=== PATIENT | female | born 1955 | race African-American/Black ===

== ENCOUNTER 2018-08-20 22:54 | Inpatient (IN) | payer MEDICARE, MEDICAID ==
[~2018-08-20] VITALS: Ht 162.6 cm; Wt 110.7 kg
[2018-08-20] MEDS ORDERED: LISI40TA4 PO (23:16)
[2018-08-20] MEDS ORDERED: ATEN50TA PO (23:16)
[2018-08-20] MEDS ORDERED: NIFE20CA8 PO (23:16)
[2018-08-20] MEDS ORDERED: METF500T PO (23:16)
[2018-08-20] MEDS ORDERED: ASPI81TA31 PO (23:16)
[2018-08-20] MEDS ORDERED: ATOR40TA PO (23:16)
[2018-08-20] MEDS ORDERED: ONDANSETRON IV *ER 4 MG/2 ML VIAL IV ONE (23:30)
[2018-08-20] MEDS ORDERED: MORPHINE SULFATE 4 MG/1 ML DISP.SYRIN IV ONE (23:30)
[2018-08-20 23:36] LABS: BASOPHILS # (AUTO) 0.2 K/uL (0.0-8.0); BASOPHILS % (AUTO) 1.9 % (0.0-2.0); EOSINOPHILS # (AUTO) 0.1 K/uL (0.0-0.7); HEMATOCRIT 35.8 % (31.2-41.9); HEMOGLOBIN 11.9 g/dL (10.9-14.3); LYMPHOCYTES % (AUTO) 24.1 % (20.5-51.5); MEAN CORPUSCULAR HEMOGLOBIN 28.6 uug (24.7-32.8); MEAN CORPUSCULAR HGB CONC 33 g/dL (32.3-35.6); MEAN CORPUSCULAR VOLUME 85.9 fL (75.5-95.3); MONOCYTES # (AUTO) 0.5 K/uL (2.0-10.0); MONOCYTES % (AUTO) 5.9 % (0.0-11.0); NEUTROPHILS # (AUTO) 5.6 K/uL (1.8-8.9); NEUTROPHILS % (AUTO) 67.1 % (38.5-71.5); PLATELET COUNT (AUTO) 412 K/uL (179-408); RED BLOOD CELL COUNT(AUTO) 4.17 MIL/uL (3.63-4.92); WHITE BLOOD COUNT (AUTO) 8.3 K/uL (3.8-11.8)
[2018-08-20] MEDS ORDERED: MORPHINE SULFATE 4 MG/1 ML DISP.SYRIN ONE (23:37)
[2018-08-20] MEDS ORDERED: ONDANSETRON 4 MG/2 ML VIAL ONE (23:37)
--- NOTE | 2018-08-20 23:39 | NUR ---
Patient out of unit for ct scan via gurn[facility]
[2018-08-20 23:47] LABS: CREATININE 0.8 mg/dL (0.6-1.3); POTASSIUM 3.7 mmol/L (3.5-5.1)
--- NOTE | 2018-08-20 23:48 | NUR ---
Patient back from ct scan with no distress noted
[2018-08-20 23:53] LABS: BILIRUBIN,DIRECT 0.1 mg/dL (0.0-0.2); BILIRUBIN,TOTAL 0.4 mg/dL (0.2-1.0); TOTAL PROTEIN, SERUM 8.4 g/dL (6.4-8.2)
[2018-08-21 00:02] LABS: *BILIRUBIN,URIN NEGATIVE (NEGATIVE); *CLARITY,URINE CLEAR (CLEAR); *COLOR,URINE YELLOW (YELLOW); *KETONES,URINE NEGATIVE (NEGATIVE); *UROBILINOGEN,URINE 0.2 E.U./dl (NORMAL); LEUKOCYTE ESTERASE ,URINE NEGATIVE (NEGATIVE); NITRITE, URINE NEGATIVE (NEGATIVE); UGLUCOSE NEGATIVE (NEGATIVE)
[2018-08-21 00:03] LABS: *BLOOD, URINE TRACE (NEGATIVE)
[2018-08-21 00:13] LABS: RBC,URINE 0-3 /HPF (0-3)
[2018-08-21 00:14] LABS: BACTERIA,URINE MODERATE /HPF (NONE SEEN); SQUAMOUS EPITHELIAL CELL,UR FEW /HPF (NONE SEEN); WBC,URINE 0-3 /HPF (0-3)
[2018-08-21] MEDS ORDERED: HYDROMORPHONE 1 MG/1 ML DISP.SYRIN IV ONE ×2 (00:15→02:15)
--- NOTE | 2018-08-21 00:45 | NUR ---
Patient sleeping with no distress noted
--- NOTE | 2018-08-21 01:35 | NUR ---
Waiting for ct result
--- NOTE | 2018-08-21 01:56 | NUR ---
Dr Brar speaking with Dr Cruz for consult for surgery
--- NOTE | 2018-08-21 01:58 | NUR ---
Paged [facility] panel. Waith for Allen MACHINE REPAIRER to call back
[2018-08-21] MEDS ORDERED: PIPERACILLIN SODIUM/TAZOBACTAM 3.375 G in IV DEXTROSE 5% 50 ML IV ONE (02:00)
[2018-08-21] MEDS ORDERED: ONDANSETRON 4 MG/2 ML VIAL ONE ×2 (02:08→11:49)
--- NOTE | 2018-08-21 02:18 | NUR ---
Dr Brar spoke with Allen VICE PRESIDENT SAFETY sleeve ironer for eppic
[2018-08-21] MEDS ORDERED: ACETAMINOPHEN 650 MG SUPP.RECT RC PRN (02:30)
[2018-08-21] MEDS ORDERED: Z GUARD REMEDY PASTE 57 GM TUBE TOP PRN (02:30)
[2018-08-21] MEDS ORDERED: MORPHINE SULFATE 2 MG/1 ML DISP.SYRIN IV PRN (02:30)
[2018-08-21] MEDS ORDERED: DEXTROSE 50% 50 ML DISP.SYRIN IV PRN (02:30)
[2018-08-21] MEDS ORDERED: ONDANSETRON IV *ER 4 MG/2 ML VIAL IV ONE (02:30)
--- NOTE | 2018-08-21 03:30 | NUR ---
Received patient from ER. Dx: Acute appendicitis. Patient is A/Ox4, able to make needs known. Son is at bedside. No signs of acute distress. Complains of pain 8/10 on the right side of abdomen and some nausea. No complaints of SOB, patient is on 2L NC. Heplock on the left AC is intact and patent. Belongings list and belongings brought with patient. Safety measures initiated. Bed is low and locked, call light within reach. Will continue with admission process.
[2018-08-21] MEDS ORDERED: METRONIDAZOLE 500 MG/NS 100ML 100 ML IV ONE (03:31)
[2018-08-21] MEDS ORDERED: CEFTRIAXONE 1 G VIAL ONE (03:32)
[2018-08-21 04:00] VITALS: BP 129/63
[2018-08-21] MEDS: ONDANSETRON 4 MG/2 ML VIAL IV PRN ×2 (04:07→15:33)
[2018-08-21] MEDS: CEFTRIAXONE 2 G in IV DEXTROSE 5% 100 ML IV SCH (04:19)
[2018-08-21] MEDS: IV D5LR 1,000 ML IV PRN (05:19)
[2018-08-21] MEDS: METRONIDAZOLE 500 MG/NS 100ML 500 MG in PREMIXED 1 EACH IV SCH ×3 (06:24→22:19)
[2018-08-21] MEDS: BLOOD SUGAR DIAGNOSTIC 1 EACH STRIP VI SCH ×4 (06:34→21:41)
--- NOTE | 2018-08-21 07:47 | NUR ---
NOTIFIED JOSEFA ESPANA OF SCHEDULED SURGERY
[2018-08-21] MEDS: HYDROMORPHONE 1 MG/1 ML DISP.SYRIN IV PRN ×3 (08:04→20:01)
[2018-08-21] MEDS ORDERED: BUPIVACAINE 0.25% 30 ML VIAL ONE (08:07)
[2018-08-21] MEDS ORDERED: IRR NORMAL SALINE IRRIGATION 2000 ML BOTTLE IR ONE (08:21)
[2018-08-21] MEDS ORDERED: IV NORMAL SALINE 1000 ML BAG IV ONE (08:21)
[2018-08-21] MEDS ORDERED: SUCCINYLCHOLINE CHLORIDE 200 MG/10 ML VIAL MC ONE (08:21)
[2018-08-21] MEDS ORDERED: LIDOCAINE-MPF 2% 5 ML VIAL MC ONE (08:21)
[2018-08-21] MEDS ORDERED: ONDANSETRON 4 MG/2 ML VIAL IV ONE (08:21)
[2018-08-21] MEDS ORDERED: PROPOFOL 200 MG/20 ML BOTTLE IV ONE (08:21)
[2018-08-21] MEDS ORDERED: SEVOFLURANE 250 ML BOTTLE IH ONE (08:21)
[2018-08-21] MEDS ORDERED: DEXAMETHASONE SOD PHOSPHATE 4 MG INJ IV ONE (08:21)
[2018-08-21] MEDS ORDERED: PANTOPRAZOLE SODIUM 40 MG VIAL IV SCH ×2 (09:00)
--- NOTE | 2018-08-21 09:01 | NUR ---
PT PICKED UP FOR SURGERY AT 0901. PT OFF UNIT.
[2018-08-21] MEDS ORDERED: FENTANYL CITRATE 100 MCG/2 ML AMPUL ONE (10:42)
[2018-08-21 11:00] VITALS: BP 134/64
--- NOTE | 2018-08-21 12:44 | NUR ---
Patient back from surgery, A/A/Ox4 started on ice chips, will advance diet as tolerated. VSS, IV in left foot intact and infusing. Family at bedside, call light in reach.
[2018-08-21] MEDS: ESOMEPRAZOLE SODIUM 40 MG VIAL IV SCH (15:38)
[2018-08-21 16:00] VITALS: BP_SYST 103; BP_SYST 126; BP_DIAS 54; BP_DIAS 70
[2018-08-21] MEDS: INSULIN REGULAR, HUMAN 300 UNIT/3 ML VIAL SQ PRN ×2 (16:42→21:43)
--- NOTE | 2018-08-21 18:10 | NUR ---
PATIENT TOLERATING DIET, PAIN MANAGED WITH DILAUDID PRN. PATIENT OOB AMBULATES TO RESTROOM, BOWEL SOUNDS AUDIBLE, NOT PASSING GAS AT THIS TIME. IV IN LEFT FOOT REMAINS INTACT AND PATENT WITH FLUIDS RUNNING ORDERED. NO FALLS OR INJURY DURING SHIFT, FAMILY REMAINS AT BEDSIDE, CALL LIGHT IN REACH.
--- NOTE | 2018-08-21 19:45 | NUR ---
Received report from the day shift. Received patient awake, alert and oriented x 4, IV access is patent and intact, flushes well. Bed is in low position, locked, side rails up x 2, call light within reach. Comfort and safety provided . No acute distress noted. patient reports pain, denies nausea. Surgical dressing is dry and intact.
[2018-08-21 20:00] VITALS: BP 140/72
[2018-08-22] MEDS: HYDROMORPHONE 1 MG/1 ML DISP.SYRIN IV PRN ×3 (00:23→08:45)
[2018-08-22] MEDS: IV D5LR 1,000 ML IV PRN (02:37)
[2018-08-22] MEDS: CEFTRIAXONE 2 G in IV DEXTROSE 5% 100 ML IV SCH (02:43)
[2018-08-22] MEDS: ONDANSETRON 4 MG/2 ML VIAL IV PRN ×2 (05:12→11:31)
[2018-08-22 05:23] VITALS: BP 124/55
[2018-08-22] MEDS: METRONIDAZOLE 500 MG/NS 100ML 500 MG in PREMIXED 1 EACH IV SCH ×3 (06:07→22:41)
[2018-08-22 06:32] LABS: BASOPHILS % (AUTO) 0.2 % (0.0-2.0); EOSINOPHILS # (AUTO) 0.1 K/uL (0.0-0.7); EOSINOPHILS % (AUTO) 0.7 % (0.0-7.0); HEMATOCRIT 30.2 % (31.2-41.9); LYMPHOCYTES # (AUTO) 2.1 K/uL (20.0-40.0); LYMPHOCYTES % (AUTO) 21.7 % (20.5-51.5); MEAN CORPUSCULAR HEMOGLOBIN 29.1 uug (24.7-32.8); MEAN CORPUSCULAR HGB CONC 33 g/dL (32.3-35.6); MEAN CORPUSCULAR VOLUME 87.3 fL (75.5-95.3); MONOCYTES # (AUTO) 0.6 K/uL (2.0-10.0); MONOCYTES % (AUTO) 6.7 % (0.0-11.0); NEUTROPHILS # (AUTO) 6.7 K/uL (1.8-8.9); NEUTROPHILS % (AUTO) 70.7 % (38.5-71.5); PLATELET COUNT (AUTO) 361 K/uL (179-408); RED BLOOD CELL COUNT(AUTO) 3.45 MIL/uL (3.63-4.92); WHITE BLOOD COUNT (AUTO) 9.5 K/uL (3.8-11.8)
[2018-08-22 06:46] LABS: MAGNESIUM 1.5 mg/dL (1.8-2.4); PHOSPHOROUS 3.8 mg/dL (2.5-4.9); POTASSIUM 3.4 mmol/L (3.5-5.1)
[2018-08-22] MEDS: BLOOD SUGAR DIAGNOSTIC 1 EACH STRIP VI SCH ×4 (06:59→21:41)
--- NOTE | 2018-08-22 07:25 | NUR ---
Received report from quarry supervisor open pit nurse Baldemar,Patient is awake, alert and oriented x 4, unable to ambulate d/t pain. Bed is in low position, locked, side rails up x 2, call light within reach. Comfort and safety provided . No acute distress noted. Will continue according to plan of care
--- NOTE | 2018-08-22 07:50 | NUR ---
Report given to the day shift nurse Юлия PAREDES. Patient is awake, alert and oriented x 4, unable to ambulate d/t pain. Patient has had multiple episodes of severe pain in the abdomen managed with dilaudid. In the morning patient tried drinking apple juice and developed nausea. Zofran given with poor relief. Bed is in low position, locked, side rails up x 2, call light within reach. Comfort and safety provided . No acute distress noted. Report given to the day nurse.
[2018-08-22] MEDS: ESOMEPRAZOLE SODIUM 40 MG VIAL IV SCH (08:31)
[2018-08-22] MEDS ORDERED: NIFEDIPINE 40 MG PO SCH (09:00)
[2018-08-22] MEDS ORDERED: Medication Not On Formulary EA (Lisinopril 40 MG) PO SCH (09:00)
[2018-08-22] MEDS ORDERED: POTASSIUM CHLORIDE 20 MEQ TAB.PRT.SR PO ONE (09:15)
[2018-08-22] MEDS: ATENOLOL 50 MG TABLET PO SCH ×2 (09:42→18:08)
[2018-08-22] MEDS: MAGNESIUM SULFATE/D5W 100 ML IV SCH ×3 (09:43→11:45)
[2018-08-22] MEDS: METFORMIN HCL 500 MG TABLET PO SCH (09:43)
[2018-08-22 11:24] VITALS: BP 117/56
[2018-08-22] MEDS ORDERED: FLUT10.62 IH (14:41)
[2018-08-22 15:57] VITALS: BP 119/64
[2018-08-22] MEDS ORDERED: ACETAMINOPHEN ES 500 MG TABLET- SA PATIENTS-PAIN ONLY PO PRN (18:30)
--- NOTE | 2018-08-22 18:41 | NUR ---
PRESCRIBED MEDICATIONS ARE GIVEN, PATIENT HAD MULTIPLE EPISODES OF PAIN MANAGED WITH DILAUDID IV AND TYLENOL PO, NAUSEA WAS MANAGED WITH ZOFRAN IV,PATIENT TOLERATED WELL,COOPERATIVE WITH PLAN OF CARE,SAFETY AND COMFORT MEASURES WERE IMPLEMENTED WILL ENDORSE TO UPCOMING NURSE FO CONTINUITY OF CARE
[2018-08-22] MEDS: ACETAMINOPHEN 325 MG TABLET PO PRN (18:47)
--- NOTE | 2018-08-22 19:51 | NUR ---
RECEIVED PATIENT IN GOOD MOOD, PAIN IS MILD BELOW 4/10. COMFORT AND SAFETY MEASURES ARE IN PLACE.
[2018-08-22 20:22] VITALS: BP 149/59
[2018-08-22] MEDS: NIFEdipine 10 MG CAPSULE PO SCH (20:22)
[2018-08-22] MEDS ORDERED: ATORVASTATIN 40 MG TABLET PO SCH (21:00)
--- NOTE | 2018-08-22 21:25 | NUR ---
Patients ambulated with her son. Walking in the hallway for 3 min. returned to bed safely, tolerated well.
--- NOTE | 2018-08-22 21:41 | NUR ---
patient blood glucose is 142. Refused insulin. Refused D5LR infusion. Comfort and safety provided. Pain is mild and less frequent.
[2018-08-22] MEDS: INSULIN REGULAR, HUMAN 300 UNIT/3 ML VIAL SQ PRN (21:42)
--- NOTE | 2018-08-22 22:50 | NUR ---
patient reported the IV in her foot is painful. infusion was paused and new IV inserted in the right distal forearm. Flushed and restarted infusion. COmfort and safety provided.
--- NOTE | 2018-08-23 00:12 | NUR ---
Removed IV from the left foot. Patient continues to refuse IV fluids. right forearm IV was flushed and locked.
[2018-08-23] MEDS: ACETAMINOPHEN 325 MG TABLET PO PRN (00:54)
[2018-08-23 03:21] VITALS: BP 111/56
[2018-08-23] MEDS: CEFTRIAXONE 2 G in IV DEXTROSE 5% 100 ML IV SCH (03:45)
[2018-08-23] MEDS: METRONIDAZOLE 500 MG/NS 100ML 500 MG in PREMIXED 1 EACH IV SCH (05:42)
--- NOTE | 2018-08-23 05:59 | NUR ---
patient is passing gas. Intermittent sleep. Reports tolerable pain2/10.
[2018-08-23 06:32] LABS: BASOPHILS % (AUTO) 0.7 % (0.0-2.0); EOSINOPHILS # (AUTO) 0.1 K/uL (0.0-0.7); EOSINOPHILS % (AUTO) 0.8 % (0.0-7.0); HEMOGLOBIN 10.6 g/dL (10.9-14.3); LYMPHOCYTES # (AUTO) 1.4 K/uL (20.0-40.0); LYMPHOCYTES % (AUTO) 18.4 % (20.5-51.5); MEAN CORPUSCULAR HEMOGLOBIN 28.9 uug (24.7-32.8); MEAN CORPUSCULAR HGB CONC 33 g/dL (32.3-35.6); MEAN CORPUSCULAR VOLUME 87.2 fL (75.5-95.3); MONOCYTES # (AUTO) 0.4 K/uL (2.0-10.0); MONOCYTES % (AUTO) 5.9 % (0.0-11.0); NEUTROPHILS # (AUTO) 5.5 K/uL (1.8-8.9); NEUTROPHILS % (AUTO) 74.2 % (38.5-71.5); PLATELET COUNT (AUTO) 371 K/uL (179-408); RED BLOOD CELL COUNT(AUTO) 3.67 MIL/uL (3.63-4.92); WHITE BLOOD COUNT (AUTO) 7.5 K/uL (3.8-11.8)
[2018-08-23 06:39] LABS: CREATININE 1.1 mg/dL (0.6-1.3); POTASSIUM 3.7 mmol/L (3.5-5.1)
[2018-08-23] MEDS ORDERED: PANTOPRAZOLE SODIUM 40 MG TABLET.DR PO SCH (07:00)
[2018-08-23] MEDS: BLOOD SUGAR DIAGNOSTIC 1 EACH STRIP VI SCH (07:06)
[2018-08-23] MEDS: ATENOLOL 50 MG TABLET PO SCH (08:59)
[2018-08-23] MEDS: NIFEdipine 10 MG CAPSULE PO SCH (08:59)
[2018-08-23] MEDS: METFORMIN HCL 500 MG TABLET PO SCH (08:59)
[2018-08-23] MEDS ORDERED: LISINOPRIL 20 MG TABLET PO SCH (09:00)
[2018-08-23 09:01] VITALS: BP 137/53
--- NOTE | 2018-08-23 10:44 | NUR ---
pt discharged with family. no prescriptions needed per MD. no signs of complications upon discharge. iv taken out. pt given discharge insctructions with surgery site care and follow up care with surgeon. pt verbalizes understanding. pt brought all belongings. pt left with son on private transport.
== END 2018-08-23 10:00 | disposition home or self-care (01) | DRG 342 ==
LOC: ER 22:56 → MEDSURG3 08-21 02:56
PROVIDERS: ADMIT Hospitalist; ATTEND Family Medicine
PROC: 0DTJ4ZZ Resection of Appendix, Percutaneous Endoscopic Approach (ICD-10-PCS; principal; 2018-08-21)
DX: K35.890 Other acute appendicitis without perforation or gangrene (principal); N13.2 Hydronephrosis with renal and ureteral calculous obstruction; Z68.41 Body mass index [BMI] 40.0-44.9, adult; E11.65 Type 2 diabetes mellitus with hyperglycemia; I11.9 Hypertensive heart disease without heart failure; E66.9 Obesity, unspecified; I70.0 Atherosclerosis of aorta; E78.5 Hyperlipidemia, unspecified; E87.6 Hypokalemia; E83.42 Hypomagnesemia; J45.909 Unspecified asthma, uncomplicated; Z79.84 Long term (current) use of oral hypoglycemic drugs; Z90.710 Acquired absence of both cervix and uterus; Z79.899 Other long term (current) drug therapy; Z79.82 Long term (current) use of aspirin
CPT/HCPCS: 36415; 71045; 83690; 83735; 84100; 85025; 85610; 85730; 93005; A4217; A4663; C1713; G0378; J0330; J0696; J1100; J1170; J1815; J2270; J2405; J2543; J3010; J3475; J3490; J7030; J7050; J7060

== ENCOUNTER 2018-08-27 08:40 | Emergency (ER) | payer MEDICARE, MEDICAID ==
[~2018-08-27] VITALS: Ht 165.1 cm; Wt 109.3 kg
[~2018-08-27 08:40] MED LIST: ASPI81TA31 PO; ATEN50TA PO; ATOR40TA PO; FLUT10.62 IH; LISI40TA4 PO; METF500T PO; NIFE20CA8 PO
[2018-08-27] MEDS ORDERED: MISCELLANEOUS MED VG ONE (09:15)
[2018-08-27] MEDS ORDERED: FLUCONAZOLE 100 MG TABLET PO ONE (09:15)
[2018-08-27] MEDS ORDERED: FLUCONAZOLE 100 MG TABLET ONE (09:31)
--- NOTE | 2018-08-27 09:38 | NUR ---
Chaperoned MD during vaginal exam. Abdominal staple wounds intact. No signs of infection. MD removed kimberly on all 3 wounds. steristips placed.
--- NOTE | 2018-08-27 09:43 | NUR ---
Pharmacy was called for medication. Order was changed. Medication arrived at 9:43 am
[2018-08-27] MEDS ORDERED: CLOTRIMAZOLE 1% VAG CREAM 45 GM TUBE VG ONE (09:44)
[2018-08-27] MEDS ORDERED: MISCELLANEOUS MED XX ONE (09:45)
== END 2018-08-27 09:51 | disposition home or self-care (01) ==
LOC: ER 08:40
DX: B37.3 Candidiasis of vulva and vagina (principal); Z88.5 Allergy status to narcotic agent; Z79.82 Long term (current) use of aspirin; Z79.899 Other long term (current) drug therapy
CPT/HCPCS: A4663

== ENCOUNTER 2021-11-29 13:12 | Emergency (ER) | payer MEDICAID, MEDICARE ==
[~2021-11-29] VITALS: Ht 165.1 cm; Wt 107.5 kg
[~2021-11-29 13:12] MED LIST changes: +LISI40TA13 PO; -LISI40TA4 PO
[2021-11-29 14:07] LABS: *BILIRUBIN,URIN NEGATIVE (NEGATIVE); *BLOOD, URINE NEGATIVE (NEGATIVE); *CLARITY,URINE CLEAR (CLEAR); *COLOR,URINE YELLOW (YELLOW); *KETONES,URINE NEGATIVE (NEGATIVE); *UROBILINOGEN,URINE 0.2 E.U./dl (NORMAL); LEUKOCYTE ESTERASE ,URINE NEGATIVE (NEGATIVE); NITRITE, URINE NEGATIVE (NEGATIVE); UGLUCOSE NEGATIVE (NEGATIVE)
[2021-11-29] MEDS ORDERED: NITR100C6 PO (14:37)
--- NOTE | 2021-11-29 14:44 | NUR ---
Gave pt RX and d/c instructions, pt verbalized understanding.
== END 2021-11-29 14:47 | disposition home or self-care (01) ==
LOC: ER 13:12
DX: R35.0 Frequency of micturition (principal); I10 Essential (primary) hypertension; R73.03 Prediabetes; Z79.899 Other long term (current) drug therapy; Z79.82 Long term (current) use of aspirin; Z79.84 Long term (current) use of oral hypoglycemic drugs
CPT/HCPCS: 87086; A4663